=== PATIENT | male | born 1975 | race Caucasian/White ===

== ENCOUNTER 2019-08-29 14:36 | Inpatient (IN) | payer SELFPAY ==
[2019-08-29 17:24] VITALS: BMI 29.5
--- NOTE | 2019-08-29 20:04 | HP ---
COWS - Scale Resting Pulse: 0= [place] 80 or Below Sweatin= No chills or Flushing Restless Observation: 1= Difficult to Sit Still Pupil Size: 0= Normal to Room Light Bone or Joint Aches: 1= Mild Discomfort Runny Nose/ Eye Tearin= Runny Nose/Eyes GI Upset > 30mins: 1= Stomach Cramp Tremor Observation: 1= Tremor [place], Not Seen Yawning Observation: 2= >3x During Session Anxiety or Irritability: 2=Irritable/Anxious Goose Flesh Skin: 0=Smooth Skin COWS Score: 10 CIWA Score - Admission Criteria OASAS Guidelines: Admission for Medically Managed Detox: Requires at least one of the followin. CIWA greater than 12 2. Seizures within the past 24 hours 3. Delirium tremens within the past 24 hours 4. Hallucinations within the past 24 hours 5. Acute intervention needed for co occurring medical disorder 6. Acute intervention needed for co occurring psychiatric disorder 7. Severe withdrawal that cannot be handled at a lower level of care (continued vomiting, continued diarrhea, abnormal vital signs) requiring intravenous medication and/or fluids 8. Admitting History and Physical - Admission Chief Complaint: " I am tire, im destroying family " History of Present Illness: Patient is a 44 yo male with hx of cocaine, THC and heroin dependence is here seeking inpatient detox d/t opioid withdrawal sx. Last detox three years ago, does no recall the facility. Reports hx of MAT on OTP three years ago. Patient denies hx of overdose, seizures or blackouts. PMHX: asthma. Denies psych hx. Denies SI /HI. History Source: Patient Limitations to Obtaining History: No Limitations - Past Medical History Cardiovascular: Yes: Murmur Pulmonary: Yes: Asthma Renal/: Yes: Other (polyuria) - Past Surgical History Additional Past Surgical History: repair of fracture right eye orbit 1998 - Smoking History Smoking history: Current every day smoker Have you smoked in the past 12 months: Yes Aproximately how many cigarettes per day: 10 - Alcohol/Substance Use Hx Alcohol Use: No History of Substance Use: reports: Heroin Date of Last Use: 08/29/19 - Social History Usual Living Arrangement: Yes: Other (lives with mother) Do you think of yourself as: Straight/Heterosexual ADL: Independent History of Recent Travel: No [facility] - HPI Allergies/Adverse Reactions: Allergies Allergy/AdvReac Type Severity Reaction Status Date / Time penicillin G Allergy Verified 08/29/19 17:18 Exam Limitations: No Limitations - Ebola screening Have you traveled outside of the country in the last 21 days: No Have you had contact with anyone from an Ebola affected area: No - Review of Systems Constitutional: Chills, Changes in sleep EENT: reports: No Symptoms Reported Respiratory: reports: See HPI Cardiac: reports: No Symptoms Reported GI: reports: Poor Fluid Intake, Abdominal cramping : reports: Other (polyuria) Musculoskeletal: reports: Back Pain, Joint Pain (left knee pain chronic), Other (left foot pain after injury three days ago, worse pain when bearing weight) Integumentary: reports: No Symptoms Reported Neuro: reports: Headache Endocrine: reports: Increased Thirst Hematology: reports: Anemia Psychiatric: reports: Orientated x3, Anxious Other Systems: Reviewed and Negative Patient History - Patient Medical History Hx Anemia: Yes (no meds ) Hx Asthma: Yes Hx Chronic Obstructive Pulmonary Disease (COPD): No Hx Cancer: No Hx Cardiac Disorders: No Hx Congestive Heart Failure: No Hx Hypertension: No Hx Pacemaker: No HX Cerebrovascular Accident: No Hx Seizures: No Hx Dementia: No Hx Diabetes: No Hx Gastrointestinal Disorders: No Hx Liver Disease: No Hx Genitourinary Disorders: No Hx Sexually Transmitted Disorders: No Hx Renal Disease (ESRD): No Hx Thyroid Disease: No Hx Human Immunodeficiency Virus (HIV): No Hx Hepatitis C: No Hx Depression: No Hx Suicide Attempt: No Hx Bipolar Disorder: No Hx Schizophrenia: No - Patient Surgical History Past Surgical History: Yes Other Surgical History: right eye socket sx repair 1998 - PPD History Previous Implant?: No Documented Results: Negative w/o proof PPD to be Administered?: Yes - Smoking Cessation Smoking history: Current every day smoker Have you smoked in the past 12 months: Yes Aproximately how many cigarettes per day: 10 Hx Chewing Tobacco Use: No Initiated information on smoking cessation: Yes 'Breaking Loose' booklet given: 08/29/19 - Substance & Tx. History Hx Alcohol Use: No Hx Substance Use: Yes Substance Use Type: Heroin Hx Substance Use Treatment: Yes (2016 does not recall facility ) - Substances abused Heroin Substance route: Inhalation Frequency: Daily Amount used: 5 BAGS Age of first use: 24 Date of last use: 08/29/19 Admission [facility] Exam [facility] - Vital Signs Vital Signs: Vital Signs - 24 hr 08/29/19 17:19 Temperature 97.7 F Pulse Rate 56 L Respiratory 20 Rate Blood Pressure 151/91 - Physical General Appearance: Yes: Appropriately Dressed, Thin, Anxious HEENTM: Yes: Hearing grossly Normal, Normal ENT Inspection, Normocephalic, Normal Voice, PEEWEE, Pharynx Normal, Tm's normal, Nasal Congestion Respiratory: Yes: Chest Non-Tender, Lungs Clear, No Respiratory Distress, No Accessory Muscle Use, Wheezing Neck: Yes: Within Normal Limits Breast: Yes: Breast Exam Deferred Cardiology: Yes: Regular Rhythm, Regular Rate, Murmur Abdominal: Yes: Normal Bowel Sounds, Non Tender, Flat, Soft Genitourinary: Yes: Within Normal Limits Back: Yes: Normal Inspection Musculoskeletal: Yes: full range of Motion, Gait Steady, Pelvis Stable, Other ( left knee, + left plantar pain with tenderness to touch) Extremities: Yes: Normal Capillary Refill, Normal Inspection, Normal Range of Motion, Non-Tender, Other (edema left ankle) Neurological: Yes: senior qa engineer II-XII NML intact, Motor Strength 5/5, Depressed Affect Integumentary: Yes: Normal Color, Dry, Warm Lymphatic: Yes: Within Normal Limits - Diagnostic (1) Opioid dependence with withdrawal Current Visit: Yes Status: Acute (2) Cocaine dependence Current Visit: Yes Status: Acute (3) Injury of left foot Current Visit: Yes Status: Acute Cleared for Admission [facility] - Detox or Rehab [facility] Level of Care: Medically Managed Detox Regimen/Protocol: Methadone Breathalyzer - Breathalyzer Breathalyzer: 0 Urine Drug Screen - Test Device Lot number: [id number] Expiration date: 04/25/21 - Control Is test valid?: Yes - Results Drug screen NEGATIVE: No Urine drug screen results: THC-Marijuana, ANI-Cocaine, FEN-Fentanyl, MOP-Opiates Inpatient Rehab Admission - Rehab Decision to Admit Inpatient rehab admission?: No
[2019-08-29] MEDS ORDERED: MAGNESIUM HYDROX 2400MG/30ML ORAL SUSPENSION 30 ML CUP PO PRN (20:23)
[2019-08-29] MEDS ORDERED: METHADONE HCL 10 MG TABLET (FOR DETOX USE ONLY) PO ONE (20:23)
[2019-08-29] MEDS ORDERED: IBUPROFEN 400 MG TABLET (FP) PO PRN (20:23)
[2019-08-29] MEDS ORDERED: MENTHOL/PHENOL 1 EACH UD MM PRN (20:23)
[2019-08-29] MEDS ORDERED: NICOTINE POLACRILEX 2 MG GUM BUC PRN (20:23)
[2019-08-29] MEDS ORDERED: BISMUTH SUBSALICYLATE 524 MG/30 ML UD PO PRN (20:23)
[2019-08-29] MEDS ORDERED: MAGNESIUM CITRATE 300 ML BOTTLE PO PRN (20:23)
[2019-08-29] MEDS ORDERED: cloNIDine HCL 0.1 MG TABLET PO PRN (20:23)
[2019-08-29] MEDS ORDERED: ACETAMINOPHEN 325 MG TABLET (FP) PO PRN ×2 (20:23)
[2019-08-29] MEDS ORDERED: MAG HYDROX/AL HYDROX/SIMETH 30 ML UNIT-DOSE CUP PO PRN (20:23)
[2019-08-29] MEDS ORDERED: diazePAM 5 MG TABLET PO PRN (20:24)
[2019-08-29] MEDS: THIAMINE HCL 100 MG TABLET (FP) PO SCH (21:01)
[2019-08-29] MEDS: MELATONIN 5 MG TABLETS PO PRN (21:01)
[2019-08-29] MEDS: METHOCARBAMOL 500 MG TABLET PO PRN (21:01)
[2019-08-30] MEDS ORDERED: METHADONE HCL 5 MG TABLET (FOR DETOX USE ONLY) PO ONE (10:00)
--- NOTE | 2019-08-30 10:09 | CONSULT ---
[facility] Psychiatric Consult - Data Date of interview: 08/30/19 Admission source: Self-referred Identifying data: Mr Acevedo is a 44 years old single male, unemployed with no source of income, living with family seeking detox treatment for opioid Substance Abuse History: Reports history of heroin use. Refer to addiction counselor's summary for further information Medical History: Significant for bronchial anemia, heart murmur, history of anemia and surgery for fracture right orbit in 1998. Smokes 10 cigarettes daily Psychiatric History: Denies history of revious psychiatric treatment Physical/Sexual Abuse/Trauma History: Denies history of emotional, physical or sexual abuse as well as DV relationship Mental Status Exam - Mental Status Exam Alert and Oriented to: Time, Place, Person Cognitive Function: Fair Patient Appearance: Well Groomed, Disheveled Mood: Hopeful, Euthymic Affect: Appropriate Patient Behavior: Cooperative Speech Pattern: Clear Voice Loudness: Normal Thought Process: Intact, Goal Oriented Thought Disorder: Not Present Suicidal Ideation: Denies Homicidal Ideation: Denies Insight/Judgement: Poor Sleep: Poorly Appetite: Good Muscle strength/Tone: Normal Gait/Station: Normal Psychiatric Findings - Problem List ([place] 1, 2,3) (1) Substance-induced sleep disorder Current Visit: Yes Status: Acute (2) Opioid dependence with withdrawal Current Visit: Yes Status: Acute (3) Nicotine dependence Current Visit: Yes Status: Chronic (4) Bronchial asthma Current Visit: Yes Status: Chronic (5) Anemia Current Visit: Yes Status: Chronic (6) Cardiac murmur Current Visit: Yes Status: Chronic - Initial Treatment Plan Initial Treatment Plan: 1) Start Melatonin 5 mg po HS prn for insomnia. 2) Continue inpatient detoxification
[2019-08-30] MEDS: NICOTINE 14 MG/24 HOURS TOPICAL PATCH TD SCH (10:21)
[2019-08-30] MEDS: PRENATAL VITAMINS W/ FOLIC ACID TABLET (FP) PO SCH (10:21)
[2019-08-30 10:36] LABS: EPI CELLS 0.5 /HPF (0-5/HPF); HYALINE CASTS 0 /lpf (0-8); URINE APPEARANCE CLEAR; URINE BACTERIA 3.8 /hpf (NEGATIVE); URINE BILIRUBIN NEGATIVE (NEGATIVE); URINE COLOR YELLOW; URINE GLUCOSE (UA) NEGATIVE (NEGATIVE); URINE KETONE NEGATIVE (NEGATIVE); URINE LEUK ESTERASE NEGATIVE (NEGATIVE); URINE NITRITE NEGATIVE (NEGATIVE); URINE PROTEIN NEGATIVE (NEGATIVE); URINE RBC 7 /hpf (0-4); URINE UROBILINOGEN 0.2 mg/dL (0.2-1.0); URINE WBC 0 /hpf (0-5)
[2019-08-30 10:37] LABS: HEMATOCRIT 37.4 % (35.4-49); HEMOGLOBIN 12.8 GM/dL (11.7-16.9); MCH 31.2 pg (25.7-33.7); MCHC 34.1 g/dl (32.0-35.9); MEAN CELL VOLUME 91.6 fl (80-96); MEAN PLT VOLUME 8.8 fl (7.5-11.1); PLATELET COUNT 228 K/MM3 (134-434); RBC 4.09 M/mm3 (4.00-5.60); RDW 13.6 % (11.9-15.9)
[2019-08-30 10:50] LABS: ALBUMIN 3.3 g/dl (3.4-5.0); BILIRUBIN,TOTAL 0.2 mg/dL (0.2-1); BLOOD UREA NITROGEN 13.2 mg/dL (7-18); CALCIUM 8.8 mg/dL (8.5-10.1); CREATININE 0.6 mg/dL (0.55-1.3); POTASSIUM 4.2 mmol/L (3.5-5.1); TOT PROT 6.2 g/dl (6.4-8.2)
--- NOTE | 2019-08-30 14:45 | PN ---
BHS COWS - Scale Resting Pulse: 0= [place] 80 or Below Sweatin= Chills/Flushing Restless Observation: 0= Sits Still Pupil Size: 0= Normal to Room Light Bone or Joint Aches: 2= Severe Diffuse Aches Runny Nose/ Eye Tearin= Nasal Congestion GI Upset > 30mins: 2= Nausea/Diarrhea Tremor Observation of Outstretched Hands: 0= None Yawning Observation: 0= None Anxiety or Irritability: 2=Irritable/Anxious Goose Flesh Skin: 0=Smooth Skin COWS Score: 8 BHS Progress Note (SOAP) Subjective: Patient c/o nausea, body aches, left ankle discomfort (due to old basketball injury), anxiety and chills. Objective: 08/30/19 14:41 Vital Signs Temperature 98.4 F 08/30/19 13:05 Pulse Rate 56 L 08/30/19 13:05 Respiratory Rate 18 08/30/19 13:05 Blood Pressure 118/71 08/30/19 13:05 O2 Sat by Pulse Oximetry (%) Laboratory Tests 08/30/19 08/30/19 08/30/19 08:00 08:00 08:00 WBC 9.0 RBC 4.09 Hgb 12.8 Hct 37.4 MCV 91.6 MCH 31.2 MCHC 34.1 RDW 13.6 Plt Count 228 MPV 8.8 Sodium 142 Potassium 4.2 Chloride 108 H Carbon Dioxide 29 Anion Gap 4 L BUN 13.2 Creatinine 0.6 Est GFR (CKD-EPI)AfAm 140.73 Est GFR (CKD-EPI)NonAf 121.43 Random Glucose 94 Calcium 8.8 Total Bilirubin 0.2 AST 11 L ALT 22 Alkaline Phosphatase 73 Total Protein 6.2 L Albumin 3.3 L Urine Color Urine Appearance Urine pH Ur Specific [place] Urine Protein Urine Glucose (UA) Urine Ketones Urine Blood Urine Nitrite Urine Bilirubin Urine Urobilinogen Ur Leukocyte Esterase Urine WBC (Auto) Urine RBC (Auto) Urine Casts (Auto) U Epithel Cells (Auto) Urine Bacteria (Auto) RPR Titer Nonreactive 08/30/19 09:00 WBC RBC Hgb Hct MCV MCH MCHC RDW Plt Count MPV Sodium Potassium Chloride Carbon Dioxide Anion Gap BUN Creatinine Est GFR (CKD-EPI)AfAm Est GFR (CKD-EPI)NonAf Random Glucose Calcium Total Bilirubin AST ALT Alkaline Phosphatase Total Protein Albumin Urine Color Yellow Urine Appearance Clear Urine pH 7.0 Ur Specific [place] 1.015 Urine Protein Negative Urine Glucose (UA) Negative Urine Ketones Negative Urine Blood Trace Urine Nitrite Negative Urine Bilirubin Negative Urine Urobilinogen 0.2 Ur Leukocyte Esterase Negative Urine WBC (Auto) 0 Urine RBC (Auto) 7 Urine Casts (Auto) 0 U Epithel Cells (Auto) 0.5 Urine Bacteria (Auto) 3.8 RPR Titer PE alert and oriented x 3 skin warm, mild facial moisture +perrla eoms intact bl car s1s2 resp cta bl gi nt, nd ext mild tremors, no visible edema Assessment: 08/30/19 14:45 opiod withdrawal syndrome Plan: continue detox encourage oral fluids left foot/ankle xray pending monitor clinically
[2019-08-30] MEDS: THIAMINE HCL 100 MG TABLET (FP) PO SCH (22:16)
[2019-08-30] MEDS: MELATONIN 5 MG TABLETS PO PRN (22:17)
[2019-08-30] MEDS: METHOCARBAMOL 500 MG TABLET PO PRN (22:17)
[2019-08-31 09:39] VITALS: BP 129/85; PULSE 55; TEMP 98.4
--- NOTE | 2019-08-31 09:48 | EKG ---
Test Reason : Blood Pressure : / mmHG Vent. Rate : 054 BPM Atrial Rate : 054 BPM P-R Int : 158 ms QRS Dur : 092 ms QT Int : 424 ms P-R-T Axes : 059 060 055 degrees QTc Int : 402 ms SINUS BRADYCARDIA MINIMAL VOLTAGE CRITERIA FOR LVH, MAY BE NORMAL VARIANT ST ELEVATION, CONSIDER EARLY REPOLARIZATION NO PREVIOUS ECGS AVAILABLE Confirmed by SHERMAN HERRERA MD ([id number]) on 08/31/2019 9:48:10 AM Referred By: HOLDEN BUTLER Confirmed By:SHERMAN HERRERA MD
[2019-08-31] MEDS ORDERED: METHADONE HCL 10 MG TABLET (FOR DETOX USE ONLY) PO ONE (10:00)
[2019-08-31] MEDS: PRENATAL VITAMINS W/ FOLIC ACID TABLET (FP) PO SCH (10:49)
[2019-08-31] MEDS: NICOTINE 14 MG/24 HOURS TOPICAL PATCH TD SCH (10:49)
[2019-08-31] MEDS ORDERED: hydrOXYzine PAMOATE 25 MG CAPSULE (FP) PO PRN (12:45)
--- NOTE | 2019-08-31 12:50 | PN ---
BHS COWS - Scale Resting Pulse: 0= [place] 80 or Below Sweatin= Chills/Flushing Restless Observation: 1= Difficult to Sit Still Pupil Size: 0= Normal to Room Light Bone or Joint Aches: 1= Mild Discomfort Runny Nose/ Eye Tearin= None GI Upset > 30mins: 0= None Tremor Observation of Outstretched Hands: 0= None Yawning Observation: 1= 1-2x During Session Anxiety or Irritability: 1=Feels Anxious/Irritable Goose Flesh Skin: 0=Smooth Skin COWS Score: 5 BHS Progress Note (SOAP) Subjective: c/o back pain, mild sweats, and anxiety. Objective: 08/31/19 12:47 Vital Signs 08/31/19 08/31/19 06:00 09:39 Temperature 98.2 F 98.4 F Pulse Rate 49 L 55 L Respiratory 18 18 Rate Blood Pressure 101/58 L 129/85 Lab Results WBC 9.0 K/mm3 (4.0-10.0) 08/30/19 08:00 RBC 4.09 M/mm3 (4.00-5.60) 08/30/19 08:00 Hgb 12.8 GM/dL (11.7-16.9) 08/30/19 08:00 Hct 37.4 % (35.4-49) 08/30/19 08:00 MCV 91.6 fl (80-96) 08/30/19 08:00 MCHC 34.1 g/dl (32.0-35.9) 08/30/19 08:00 RDW 13.6 % (11.9-15.9) 08/30/19 08:00 Plt Count 228 K/MM3 (134-434) 08/30/19 08:00 Sodium 142 mmol/L (136-145) 08/30/19 08:00 Potassium 4.2 mmol/L (3.5-5.1) 08/30/19 08:00 Chloride 108 mmol/L (98-107) H 08/30/19 08:00 Carbon Dioxide 29 mmol/L (21-32) 08/30/19 08:00 Anion Gap 4 MMOL/L (8-16) L 08/30/19 08:00 BUN 13.2 mg/dL (7-18) 08/30/19 08:00 Creatinine 0.6 mg/dL (0.55-1.3) 08/30/19 08:00 Random Glucose 94 mg/dL (74-106) 08/30/19 08:00 Calcium 8.8 mg/dL (8.5-10.1) 08/30/19 08:00 Labs noted. Assessment: 08/31/19 12:48 AOX3, in no acute respiratory distress. Full ROM, ambulating in the unit. mild withdrawal symptoms. For discharge tomorrow. Plan: continue detox. discontinue valium prn vistaril prn for anxiety. D/C in AM.
--- NOTE | 2019-08-31 14:51 | DS ---
[facility] Detox Discharge Summary Admission Date: 08/29/19 Discharge Date: 08/31/19 - History Present History: Alcohol Dependence, Opioid Dependence Additional Comments: Pt is medically cleared and is discharged today. Pt proposed discharge is tomorrow but pt ask to leave today because he feels better. c/o mild withdrawal symptoms in the morning during rounds. Pt is encouraged to follow-up with outpatient CD program and also to follow-up with his PMD. Pt verbalized understanding. Pt is alert and oriented x3 and in no respiratory distress. Pertinent Past History: h/o asthma, alcohol,. and heroin use disorder. - Physical Exam Results Vital Signs: Vital Signs Temperature 98.4 F 08/31/19 09:39 Pulse Rate 55 L 08/31/19 09:39 Respiratory Rate 18 08/31/19 09:39 Blood Pressure 129/85 08/31/19 09:39 O2 Sat by Pulse Oximetry (%) Vital Signs 08/31/19 09:39 Temperature 98.4 F Pulse Rate 55 L Respiratory 18 Rate Blood Pressure 129/85 Lab Results WBC 9.0 K/mm3 (4.0-10.0) 08/30/19 08:00 RBC 4.09 M/mm3 (4.00-5.60) 08/30/19 08:00 Hgb 12.8 GM/dL (11.7-16.9) 08/30/19 08:00 Hct 37.4 % (35.4-49) 08/30/19 08:00 MCV 91.6 fl (80-96) 08/30/19 08:00 MCHC 34.1 g/dl (32.0-35.9) 08/30/19 08:00 RDW 13.6 % (11.9-15.9) 08/30/19 08:00 Plt Count 228 K/MM3 (134-434) 08/30/19 08:00 Sodium 142 mmol/L (136-145) 08/30/19 08:00 Potassium 4.2 mmol/L (3.5-5.1) 08/30/19 08:00 Chloride 108 mmol/L (98-107) H 08/30/19 08:00 Carbon Dioxide 29 mmol/L (21-32) 08/30/19 08:00 Anion Gap 4 MMOL/L (8-16) L 08/30/19 08:00 BUN 13.2 mg/dL (7-18) 08/30/19 08:00 Creatinine 0.6 mg/dL (0.55-1.3) 08/30/19 08:00 Random Glucose 94 mg/dL (74-106) 08/30/19 08:00 Calcium 8.8 mg/dL (8.5-10.1) 08/30/19 08:00 Labs noted. Pertinent Admission Physical Exam Findings: withdrawal symptoms. - Treatment Hospital Course: Detox Protocol Followed, Detoxed Safely, Responded well, Discharged Condition Good - Medication Discharge Medications: Ambulatory Orders NK [No Known Home Medication] 08/29/19 - Diagnosis (1) Cocaine dependence Status: Acute (2) Opioid dependence with withdrawal Status: Acute (3) Anemia Status: Chronic (4) Bronchial asthma Status: Chronic (5) Cardiac murmur Status: Chronic (6) Nicotine dependence Status: Chronic - AMA Did Patient Leave Against Medical Advice: No
[2019-09-01] MEDS ORDERED: METHADONE HCL 5 MG TABLET (FOR DETOX USE ONLY) PO ONE (06:00)
--- NOTE | 2019-09-01 11:23 | EKG ---
Test Reason : Blood Pressure : / mmHG Vent. Rate : 048 BPM Atrial Rate : 048 BPM P-R Int : 168 ms QRS Dur : 094 ms QT Int : 442 ms P-R-T Axes : 064 064 059 degrees QTc Int : 394 ms SINUS BRADYCARDIA MINIMAL VOLTAGE CRITERIA FOR LVH, MAY BE NORMAL VARIANT WHEN COMPARED WITH ECG OF 30-AUG-2019 10:40, NO SIGNIFICANT CHANGE WAS FOUND Confirmed by SHARON TAPIA, SHERMAN ([id number]) on 09/01/2019 11:23:07 AM Referred By: BILLY ROJO Confirmed By:SHERMAN HERRERA MD
== END 2019-08-31 13:30 | disposition home or self-care (01) | DRG 773 ==
LOC: YASAS 14:36 → Y6N 20:20
PROVIDERS: ADMIT Surgery; ATTEND Surgery
PROC: HZ2ZZZZ Detoxification Services for Substance Abuse Treatment (ICD-10-PCS; principal; 2019-08-29)
DX: F10.230 Alcohol dependence with withdrawal, uncomplicated (principal); F11.23 Opioid dependence with withdrawal; F14.20 Cocaine dependence, uncomplicated; F12.20 Cannabis dependence, uncomplicated; F17.210 Nicotine dependence, cigarettes, uncomplicated; F19.282 Other psychoactive substance dependence with psychoactive substance-induced sleep disorder; F41.9 Anxiety disorder, unspecified; J45.909 Unspecified asthma, uncomplicated; D64.9 Anemia, unspecified; R01.1 Cardiac murmur, unspecified; S99.822A Other specified injuries of left foot, initial encounter; Z88.0 Allergy status to penicillin
CPT/HCPCS: 36415; 73610-TC-LT-FY; 73630-TC-LT; 80053; 81003; 85027; 86593; 93005; 93010